=== PATIENT | female | born 1975 | race Caucasian/White ===

== ENCOUNTER → 2017-05-25 | Outpatient (CLI) | payer BC ==
[2011-04-01 11:58] VITALS: BP 124/70
[~2017-05-25] MED LIST: NORCO 325 MG-51 TAB PO; PRENATAL1 TA1 PO; ZOFRAN4 M1 PO
[2017-05-25 10:58] LABS: CLUE CELLS NOT OBSERVED (Not Observd)
== END ==
LOC: LAB 10:42
PROVIDERS: Nurse Practitioner Family
DX: N76.0 Acute vaginitis (principal)
CPT/HCPCS: Q0111

== ENCOUNTER → 2017-05-31 | Outpatient (CLI) | payer BC ==
[2011-04-01 11:58] VITALS: BP 124/70
== END ==
LOC: LAB 17:30
DX: N76.0 Acute vaginitis (principal)

== ENCOUNTER → 2018-11-18 | Outpatient (CLI) | payer BC ==
[2011-04-01 11:58] VITALS: BP 124/70
== END ==
LOC: RAD 09:30
DX: R05 Cough (principal)

== ENCOUNTER → 2019-03-08 | Outpatient (CLI) | payer BC ==
[2011-04-01 11:58] VITALS: BP 124/70
== END ==
LOC: RAD 16:17
DX: R05 Cough (principal)

== ENCOUNTER → 2019-08-11 | Outpatient (CLI) | payer BC ==
[2011-04-01 11:58] VITALS: BP 124/70
== END ==
LOC: LAB 10:47
DX: R05 Cough (principal); R68.83 Chills (without fever); J02.9 Acute pharyngitis, unspecified; Z20.828 Contact with and (suspected) exposure to other viral communicable diseases

== ENCOUNTER → 2020-02-25 | Outpatient (CLI) | payer SELFPAY ==
[2011-04-01 11:58] VITALS: BP 124/70
== END ==
LOC: LAB 07:56
DX: R50.9 Fever, unspecified (principal); Z20.828 Contact with and (suspected) exposure to other viral communicable diseases

== ENCOUNTER → 2020-07-29 | Outpatient (CLI) | payer OTHER | LOC: LAB 09:30 | DX: R91.8 Other nonspecific abnormal finding of lung field (principal); Z20.822 Contact with and (suspected) exposure to COVID-19 ==

== ENCOUNTER → 2020-08-12 | Outpatient (CLI) | payer OTHER ==
[2020-08-12 12:29] LABS: BASO # 0.04 (0.02-0.10); EOS # 0.13 (0.04-0.40); EOS % 1.8 % (1.0-5.0); HEMATOCRIT 44.5 % (37.0-47.0); HEMOGLOBIN 15.4 g/dL (12.5-16.0); LYMPH# 2.63 (1.50-4.00); MEAN CELL VOLUME 93 fl (78-100); MEAN CORPUSCULAR HEMOGLOBIN 32 pg (27-31); MEAN CORPUSCULAR HGB CONC 35 g/dL (33-37); MEAN PLATELET VOLUME 8.4 fl (7.4-10.4); MONO # 0.57 (0.20-0.80); NEU # 3.81 (1.40-6.50); PLATELET COUNT 400 K/mm3 (130-400); RED BLOOD COUNT 4.78 M/mm3 (4.10-5.30); RED CELL DISTRIBUTION WIDTH 11.4 % (11.5-14.5); WHITE BLOOD COUNT 7.2 K/mm3 (4.8-10.8)
[2020-08-12 12:42] LABS: ALBUMIN 4.2 g/dL (3.5-5.0); POTASSIUM 4.1 mmol/L (3.5-5.1); SODIUM 138 mmol/L (136-145)
[2020-08-12 12:43] LABS: CALCIUM 8.6 mg/dL (8.3-10.5)
[2020-08-12 12:45] LABS: GLUCOSE 90 mg/dL (65-105); TOTAL PROTEIN 7.5 g/dL (6.4-8.3)
[2020-08-12 12:46] LABS: CARBON DIOXIDE 27 mmol/L (22-29)
[2020-08-12 12:47] LABS: TOTAL BILIRUBIN 1.1 mg/dL (0.2-1.2)
[2020-08-12 12:50] LABS: AST-SGOT 18 U/L (5-34)
[2020-08-12 12:51] LABS: ALT/SGPT 14 U/L (0-55)
[2020-08-12 13:43] LABS: ERYTHROCYTE SEDIMENTATION RATE 0 mm/hr (0-20)
== END ==
LOC: LAB 12:08
PROVIDERS: Internal Medicine
DX: M41.84 Other forms of scoliosis, thoracic region (principal); R06.00 Dyspnea, unspecified

== ENCOUNTER → 2021-02-01 | Outpatient (CLI) | payer OTHER | LOC: LAB 08:12 | DX: U07.1 COVID-19 (principal) ==

== ENCOUNTER → 2021-07-13 | Outpatient (CLI) | payer OTHER | LOC: LAB 10:21 | DX: R05.9 Cough, unspecified (principal); Z20.822 Contact with and (suspected) exposure to COVID-19 ==